=== PATIENT | female | born 1985 | race Caucasian/White ===

== ENCOUNTER 2020-08-31 08:49 | Emergency (ER) | payer MEDICAID, SELFPAY ==
[2020-08-31 08:49] VITALS: BP 148/95; PULSE 76; RESP 18; TEMP 36.2; O2SAT 100; BMI 21.9
--- NOTE | 2020-08-31 09:01 | CT_ITS ---
STUDY: CT ABDOMEN AND PELVIS WITHOUT CONTRAST REASON FOR EXAM: Female, 35 years old. Left lower abdomen and flank pain today. Prior cholecystectomy, IUD. RADIATION DOSAGE (If Supplied By Facility): CTDIvol = ( 18.23 ) mGy, DLP = ( 920.21 ) mGycm TECHNIQUE: Transaxial images were obtained from the dome of the diaphragm to the symphysis pubis without oral contrast, and without intravenous contrast. Sagittal and coronal images were reconstructed. Individualized dose optimization techniques were used for this CT. COMPARISON: 03/07/2014 FINDINGS: The visualized lung bases are unremarkable. The visualized portions of the heart are within normal limits. Normal liver. There is non-visualization of the gallbladder, which may be secondary to either contraction or a prior cholecystectomy. Normal spleen. Normal pancreas. Normal bilateral adrenal glands. Normal right kidney. 3 mm obstructing stone of the proximal left ureter with mild hydronephrosis per There is a small hiatal hernia. Normal small intestine. Normal colon. The appendix is visualized and appears normal. Normal abdominal aorta. Normal inferior vena cava. Normal retroperitoneum. Normal urinary bladder. Intrauterine device within the uterus. Normal abdominal wall. Normal osseous structures. CT/Abdomen/Pelvis without Cont IMPRESSION: 3 mm obstructing stone in the proximal left ureter with mild hydronephrosis. Electronically Signed: Familia Damon MD at 10:30 EST Tel , Service support ,
--- NOTE | 2020-08-31 09:06 | ED.VIS.GEN ---
History of Present Illness Informant: Patient Onset: Today Narrative: 35-year-old female with past medical history of cholecystectomy presents with complaints of left lower quadrant abdominal pain. She states it started around 5:30 AM this morning. Pain is sharp and stabbing in the left lower quadrant and radiates around to the left flank. It waxes and wanes in intensity. She has nausea and 3 episodes of vomiting. Denies urinary symptoms. She does have an IUD and has not had a menstrual cycle for the last 3 years, but today had a small amount of pink-tinged discharge. Denies constipation or diarrhea. Denies history of kidney stones. Denies fevers, chills, chest pain, shortness of breath, or cough. <Johana Iqbal - Last Filed: 08/31/20 10:44> Narrative: Patient presents with left lower quadrant abdominal pain she appears well. She is found to have a kidney stone which is obstructing. She will be given analgesia and antiemetics if she worsens she is to return. <Paresh Santos - Last Filed: 08/31/20 12:58> Chief Complaint: Abd Pain Past Medical History Past Medical History: - - Anxiety, depression Surgical History: cholecystectomy Smoking Status: Current every day smoker <Johana Iqbal - Last Filed: 08/31/20 10:44> <Paresh Santos - Last Filed: 08/31/20 12:58> - Allergies and Home Meds Allergies/Adverse Reactions: Allergies Penicillins Allergy (Severe, Verified 08/31/20 08:58) Hives amoxicillin [Amoxicillin] Allergy (Verified 08/31/20 08:58) Hives adhesive Adverse Reaction (Verified 08/31/20 08:58) Itching Primary Care Physician: Corby Fajardo MD [Primary Care Provider] - Review of Systems General: Denies: Chills, Fever, Sweats Eyes: Denies: Visual changes - bilaterally, Diplopia ENT: Denies: Rhinorrhea, Sore throat Cardiovascular: Denies: Chest pain, Palpitations Respiratory: Denies: Dyspnea, Cough, Dyspnea on exertion Gastrointestinal: Reports: Abdominal pain, Nausea, Vomiting. Denies: Diarrhea, Constipation, Melena, Hematochezia Genitourinary: Denies: Dysuria, Hematuria, Frequency Musculoskeletal: Reports: Back pain. Denies: Extremity Pain Skin: Denies: Rash, Wounds Neurological: Denies: Headache, Weakness, Numbness <JackJohana banks - Last Filed: 08/31/20 10:44> Physical Exam Vital Signs/Narrative: Vital Signs Temp Pulse Resp BP Pulse Ox 08/31/20 08:49 97.2 F L 76 18 148/95 H 100 Inital Vital Signs reviewed: Yes General: Well nourished, Well developed, No Acute Distress Head: Normocephalic, Atraumatic Eyes: Perrl, EOMI ENT: Moist mucous membranes, No rhinorrhea Neck: Supple, Nontender Cardiovascular: Regular rate, Regular rhythm, No murmurs Respiratory: No distress, CTA bilaterally, Chest nontender Abdomen: Soft, Nondistended, Normal bowel sounds, Tender, - - Tender to palpation in left lower quadrant, soft with no guarding or rebound. Negative for: Guarding, Rebound tenderness Back: Nontender, Normal Inspection. Negative for: CVA tenderness Extremities: No edema Skin: Normal color, No rash Neurological: Alert, Oriented x3, Cranial nerves II-XII grossly intact Psychological: Normal affect, Normal Mood <JackJohana banks - Last Filed: 08/31/20 10:44> Vital Signs/Narrative: Vital Signs Pulse Resp BP Pulse Ox 08/31/20 10:59 62 15 131/57 H 99 08/31/20 10:39 74 15 124/69 H 98 <Paresh Santos - Last Filed: 08/31/20 12:58> Diagnostic/Tx/Re-eval Clinical Impression(s) from Imaging Studies Abdomen/Pelvis CT 08/31/20 09:01 IMPRESSION: 3 mm obstructing stone in the proximal left ureter with mild hydronephrosis. Electronically Signed: Familia Damon MD at 10:30 EST Tel , Service support , Laboratory Data 08/31/20 08/31/20 08/31/20 09:09 09:09 09:10 WBC 6.9 RBC 5.12 Hgb 13.9 Hct 42.2 MCV 82.4 MCH 27.1 MCHC 32.9 RDW Std Deviation 37.1 RDW Coeff of Kenny 12.3 Plt Count 302 MPV 9.5 Immature Gran % (Auto) 0.300 Neut % (Auto) 72.9 H Lymph % (Auto) 21.3 [place] % (Auto) 3.6 Eos % (Auto) 1.5 Baso % (Auto) 0.4 Absolute Neuts (auto) 5.0 Absolute Lymphs (auto) 1.46 Nucleated RBC % 0 Sodium 139 Potassium 3.9 Chloride 110 H Carbon Dioxide 23.0 Anion Gap 6 BUN 12 Creatinine 0.91 Estim Creat Clear Calc 79.12 Est GFR (MDRD) Af Amer 91 Est GFR (MDRD) Non-Af 75 BUN/Creatinine Ratio 13.1 Glucose 120 H Calcium 8.9 Total Bilirubin 0.40 AST 14 L ALT 27 Alkaline Phosphatase 53 Total Protein 7.7 Albumin 3.6 Globulin 4.1 Albumin/Globulin Ratio 0.9 Lipase 115 Urine Color Brown Urine Clarity Turbid Urine pH 5.0 Ur Specific [place] 1.025 Urine Protein 100 H Urine Glucose (UA) Normal Urine Ketones 5 H Urine Occult Blood 250 H Urine Nitrite Negative Urine Bilirubin Negative Urine Urobilinogen Normal Ur Leukocyte Esterase 25 H Urine RBC > 100 SEEN Urine WBC 5-10 SEEN Ur Squamous Epith Cells 0-5 SEEN Urine Bacteria 4+ Urine Mucus 0 SEEN Urine Test Negative - Medical Decision Making Patient presented with left lower quadrant abdominal pain radiating around to her left flank with nausea and vomiting. She appears well nontoxic. Vital signs within normal limits. She has mild LLQ tenderness on exam. Labs are unremarkable. Urinalysis shows blood and leukocytes/bacteria consistent with UTI. CT showed 3 mm obstructing stone in the proximal left ureter with mild hydronephrosis. She is feeling improved after toradol and zofran. She was given scripts for percocet, zofran, and bactrim for complicated UTI. She was agreeable with this plan and discharged home in stable condition. 1. Left obstructive kidney stone with hydronephrosis 2. Complicated UTI <Johana Iqbal - Last Filed: 08/31/20 10:44> ED Disposition <Johana Iqbal - Last Filed: 08/31/20 10:44> <Paresh Santos - Last Filed: 08/31/20 12:58> - Plan for ED Patient: Disposition: Home or Assisted Living Diagnosis: Hydronephrosis with urinary obstruction due to renal calculus, UTI (urinary tract infection) Instructions: ED Renal Stone w [facility] Prescriptions: Smz/Tmp Ds [Bactrim Ds] 1 tab PO BID #20 tab Prescription Printed Oxycodone HCl/Acetaminophen [Percocet 5/325] 1 tab PO Q6H PRN PRN 3 Days #12 tab PRN Reason: Pain Prescription Printed Ondansetron [Zofran Odt] 4 mg PO Q8H PRN PRN #10 tab PRN Reason: Nausea Prescription Printed Referrals: Corby Fajardo MD [Primary Care Provider] -
[2020-08-31 09:26] LABS: Mucous, Urine 0 SEEN /hpf (<or=2+)
[2020-08-31] MEDS: Ketorolac 15 MG/ML Vial IV (09:27)
[2020-08-31] MEDS: Ondansetron 4 MG/2 ML Vial IV (09:27)
[2020-08-31 09:28] LABS: Color, Urine Brown (Yellow); Glucose, Dipstick Normal (Normal); Ketone-Dipstick 5 mg/dl (Negative); Leukocyte Esterase-Dipstick 25 /ul (Negative); Nitrite-Dipstick Negative (Negative); Occult Blood-Urine 250 /ul (Negative); Protein-Dipstick 100 mg/dl (Negative); Specific Gravity, Urine 1.025 (1.002-1.030); Urine Bilirubin Dipstick Negative (Negative); Urine Clarity Turbid (Clear); Urine Urobilinogen Normal (Normal)
[2020-08-31 09:30] LABS: Absolute Lymphocyte Count 1.46 X10^3/uL (0.83-4.51); Basophil# 0.03 X10^3/uL; Basophil% 0.4 % (0-1); Eosinophils% 1.5 % (0-5); Hematocrit 42.2 % (37-47); Hemoglobin 13.9 g/dL (12.0-15.0); Lymphocyte # 1.46 X10^3/ul (4.0); Lymphocyte % 21.3 % (19-41); Mean Corp Hgb Conc 32.9 g/dL (32-36); Mean Corpuscular Hgb 27.1 pg (27.0-32.0); Mean Corpuscular Volume 82.4 fL (81-99); Mean Platelet Vol. 9.5 fl (6.2-12.0); Monocyte# 0.25 X10^3/uL; Monocyte% 3.6 % (0-10); NRBC Flagged by Analyzer 0 % (0-5); Neutrophil # 5.01 X10^3/uL (2.7-7.7); Neutrophil % 72.9 % (47-70); Platelet Count 302 K/mm3 (150-450); RBC Distribution Width CV 12.3 % (11.6-14.6); RBC Distribution Width SD 37.1 fl (35.1-43.9); Red Blood Count 5.12 M/mm3 (4.2-5.4); White Blood Count 6.9 K/mm3 (4.4-11.0)
[2020-08-31 09:32] LABS: ALB/GLOB Ratio 0.9 RATIO (0.9-2.4); AST(SGOT) 14 U/L (15-37); Alanine Aminotransfer ALT/SGPT 27 U/L (13-56); Albumin, Serum 3.6 g/dL (3.2-5.0); Alkaline Phosphatase 53 U/L (45-117); Anion Gap 6 (5-15); BUN 12 mg/dL (7-18); BUN/Creat Ratio 13.1 RATIO (10-20); Calcium,Total 8.9 mg/dL (8.5-10.1); Chloride 110 mmol/L (98-107); Creatinine, Serum 0.91 mg/dL (0.55-1.02); EST Glomerular Filtration Rate 75 mL/min (>60); Est Glom Filt Rate - Afr Amer 91 mL/min (>60); Estimated Creatinine Clearance 79.12 ml/min; Globulin 4.1 g/dL (2.2-4.2); Glucose 120 mg/dL (74-106); Lipase 115 U/L (73-393); Potassium 3.9 mmol/L (3.5-5.1); Protein, Total 7.7 g/dL (6.4-8.2); Sodium Level 139 mmol/L (136-145)
[2020-08-31 09:35] LABS: Internal QC Validated? YES +Cl - CLEAR BKGD; Pregnancy, Urine Negative Negative
[2020-08-31 09:37] LABS: Squamous Epithelial Cells - UA 0-5 SEEN /hpf (5-10)
[2020-08-31 09:40] LABS: Bacteria 4+ /hpf (None Seen); Red Blood Cells-Urine > 100 SEEN /hpf (0-5); White Blood Cells 5-10 SEEN /hpf (0-5)
[2020-08-31 10:39] VITALS: BP 124/69; PULSE 74; RESP 15; O2SAT 98
[2020-08-31] MEDS: Ketorolac 15 MG/ML Vial IM (10:41)
[2020-08-31 10:59] VITALS: BP 131/57; PULSE 62; RESP 15; O2SAT 99
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
== END 2020-08-31 10:59 | disposition home or self-care (01) ==
PROVIDERS: Emergency Provider Physician Assistant; PCP Family Medicine
DX: N13.6 Pyonephrosis (principal); F17.200 Nicotine dependence, unspecified, uncomplicated; Z79.899 Other long term (current) drug therapy; Z97.5 Presence of (intrauterine) contraceptive device
CPT/HCPCS: 74176; 80053; 81001; 81025; 83690; 85025; 96372; 96374; 96375; 99283; A4216; J2405

== ENCOUNTER → 2025-06-19 | Outpatient (CLI) | payer OTHER, SELFPAY ==
[2025-06-21 09:08] LABS: HPV APTIMA, High Risk Negative (Negative)
== END | disposition home or self-care (01) ==
LOC: LABSPEC 11:48
PROVIDERS: PCP Family Medicine; Visit Provider Nurse Practitioner Women's Health
DX: Z12.4 Encounter for screening for malignant neoplasm of cervix (principal)
CPT/HCPCS: 87624; 88175; G0145

== ENCOUNTER → 2025-06-29 | Outpatient (CLI) | payer OTHER, SELFPAY ==
--- NOTE | 2025-06-29 07:30 | BI_ITS ---
EXAM: SCRN MAMM (CAD)W/RASHAD BILAT DATE: 06/29/2025 CLINICAL HISTORY: F, Age 40 y/o , SCREEN TECHNIQUE: Procedure Code: [id number] Modality: MG Procedure: SCRN MAMM (CAD)W/RASHAD BILAT COMPARISON: Prior exam(s) dated 01/04/2024, 02/02/2023 and 01/13/2023. FINDINGS: TISSUE DENSITY: There are scattered areas of fibroglandular density. Bilateral Breast Mammographic Findings: There is a 6 mm masslike density identified in the superior, middle 3rd aspect of the left breast which requires additional workup. This is best visualized on the CC view. On the rashad images that appears to be located superiorly within the breast. Further workup is indicated. Benign round microcalcifications are seen in the left breast. There is a stable 2 cm partially obscured isodense mass in the superior outer, far anterior aspect of the right breast. A radiopaque clip is seen in the mass. The biopsy was benign. A radiopaque clip is seen in the superior medial, middle 3rd aspect of the right breast. There is a 6 mm mass at this location. This area appears stable. The biopsy was benign. This area appears stable. Benign round microcalcifications are seen in the right breast. BI/SCRN MAMM (CAD)W/RASHAD BILAT IMPRESSION: The masslike density in the left breast requires additional workup. The patien t should return for an LM view of the left breast and spot compression CC and spot compression MLO views of the left breast massl tray density. An ultrasound will also most likely be needed. OVERALL FINAL ASSESSMENT BI-RADS 0: INCOMPLETE - NEED ADDITIONAL IMAGING EVALUATION. RECOMMENDATION: Additional Views obtained/call backs A letter with findings and recommendations will be mailed to the patient. Reading Location: [id number]
--- OUTSIDE RECORDS SUMMARY | 2025-06-29 07:45 | XMS RPT_ITS | CCD ---
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 FORCEPS REMOVAL) 2004 [place] teeth LAPAROSCOPY SURG CHOLECYSTECTOMY 03/06/14 PAST SURGICAL HISTORY OF 02/05/07 right breast biopsy - fibroadenoma (Dr. Rubi) FAMILY HISTORY Problem Relation Age of Onset Hypertension Mother Thyroid Mother Diabetes Father dx'd age 50; overweight; Breast Cancer Sister 41 Cancer Maternal Grandmother Ovarian Heart Maternal Grandfather of sudden ?[place], age 57 (no autopsy done) Diabetes Paternal Grandmother Cancer Paternal Grandfather Lymphoma Diabetes Paternal Grandfather No Known Problems Daughter in a house fire No Known Problems Son in a house fire SOCIAL HISTORY Social History Tobacco Use Smoking status: Never Smokeless tobacco: Never Tobacco comments: no one smokes in household Vaping Use Vaping Use: Never used Substance Use Topics Alcohol use: Yes Comment: Rarely, none while Drug use: No REVIEW OF SYSTEMS Abdomen: No abdominal pain, nausea, vomiting, diarrhea, or constipation. No bloating, early satiety, indigestion, or increased flatulence. Bladder: No dysuria, gross hematuria, urinary frequency, urinary urgency, or incontinence. Breast: No breast lumps, nipple d/c, overlying skin changes, redness or skin retraction. Allergies and current medication updated:Yes EXAM: BP 126/84 Ht 5' 4.5 (1.64m) Wt 242 lb (109.8kg) LMP 07/06/2017 BMI 40.91 kg/(m^2). GENERAL: pleasant, female in no apparent distress HEENT: Normocephalic, atraumatic, mucus membranes moist, and no lesions NECK: Supple, full range of motion, no adenopathy, and thyroid normal DERMATOLOGY: Normal, without lesions, non-icteric, and non-hirsute BREAST: soft, non-tender, symmetric, no dominant mass on left normal nipple- areolar complex, no lymphadenopathy, and no nipple discharge, on right adjacent to arola at 9 oclock is a firm, oval 1.5 cmlesion that has been present in the past, nontender CHEST: Normal inspiratory effort ABDOMEN: soft, non-tender, and no masses PELVIC: external genitalia normal, normal Bartholin's glands, urethra, Wallace's glands, no vulvar lesions, no cervical lesions, good vaginal support, physiologic discharge present, normal appearing perineal body and perianal region, IUD strings not noted BIMANUAL: uterus normal size, shape and consistency, no adnexal masses, and non-tender RECTOVAGINAL: deferred. NEURO: alert and oriented x3,exam grossly non-focal EXTREMITIES: normal ASSESSMENT/PLAN: 1) Health maintenance: Pap/HPV up to date. Mammogram ordered. HPV vaccine: discussed, not interested 2) Contraception: IUD. Contraceptive options reviewed and information provided. 3) STD screening: Declined STD check. 4) Follow up one year or sooner as needed Juhi Coleman MD documented in this encounterSam[facility]12-31-2022 Chief complaint Narrative - Reported* An interactive audio and video telecommunication system which permits real time communications between the patient (at the originating site) and provider (at the distant site) was utilized to providethis telehealth service. * Verbal consent was requested and obtained from STEFANY KELSEY on this date, 10/17/2022 11:19 AM ,for a telehealth visit. * Patient s/Guardian s identity confirmed by valid photo ID. -[facility] Work Phone: [phone]) 188-325412-25-2022 History of Present illness Narrative 37-year-old female with complaints of a cough. She states 6 days ago she started with a cough and has gotten worse over the last few days. She denies any chest pain or shortness of breath. She does have a history of asthma and has been using her inhalers. She denies any shortness of breath at present. She has not been recently hospitalized for asthma and she has never been intubated for her asthma. Her cough is nonproductive. She is vaccinated for COVID. She has no concern for COVID.[facility] Work Phone: [phone] History of Past illness Narrative* Problem Noted Date Resolved Date Prior complicated by IUGR, antepartum 10/15/2016 07/07/2017 Overview: 10/15/16: previous 40.4 wks 5lb 14oz- consider 3rd trimester growth u/s. Germaine Ramos MD Unplanned 10/05/2016 07/07/2017 Overview: 10/05/2016This is a surprise . She and her partner just got full custody of his two children. TKRN History of depression, currently preg nant 10/05/2016 07/07/2017 Obesity in 10/05/2016 07/07/2017 Overview: 10/05/2016 Patient is obese. She will plan on GCT @ [facility]. TKRN Supervision of normal 10/19/2014 05/13/2015 Overview: Girl on - [facility] Late care 10/19/2014 05/13/2015 Allergic rhinitis, cause unspecified 05/13/2015 Overview: mild, occasional Family history of diabetes mellitus 05/13/2015 Overview: father, age 50 at diagnosis documented as of this encounter (statuses as of 01/05/2023) [facility] History of Past illness Narrative* Problem Noted Date Resolved Date Prior complicated by IUGR, antepartum 10/15/2016 07/07/2017 Overview: 10/15/16: previous 40.4 wks 5lb 14oz- consider 3rd trimester growth u/s. Germaine Ramos MD Unplanned 10/05/2016 07/07/2017 Overview: 10/05/2016This is a surprise . She and her partner just got full custody of his two children. TKRN History of depression, currently preg nant 10/05/2016 07/07/2017 Obesity in 10/05/2016 07/07/2017 Overview: 10/05/2016 Patient is obese. She will plan on GCT @ [facility]. TKRN Supervision of normal 10/19/2014 05/13/2015 Overview: Girl on - [facility] Late care 10/19/2014 05/13/2015 Allergic rhinitis, cause unspecified 05/13/2015 Overview: mild, occasional Family history of diabetes mellitus 05/13/2015 Overview: father, age 50 at diagnosis documented as of this encounter (statuses as of 01/13/2023) [facility] History of Past illness Narrative* Problem Noted Date Resolved Date Prior complicated by IUGR, antepartum 10/15/2016 07/07/2017 Overview: 10/15/16: previous 40.4 wks 5lb 14oz- consider 3rd trimester growth u/s. Germaine Ramos MD Unplanned 10/05/2016 07/07/2017 Overview: 10/05/2016This is a surprise . She and her partner just got full custody of his two children. TKRN History of depression, currently preg nant 10/05/2016 07/07/2017 Obesity in 10/05/2016 07/07/2017 Overview: 10/05/2016 Patient is obese. She will plan on GCT @ [facility]. TKRN Supervision of normal 10/19/2014 05/13/2015 Overview: Girl on [facility] care 10/19/2014 05/13/2015 Allergic rhinitis, cause unspecified 05/13/2015 Overview: mild, occasional Family history of diabetes mellitus 05/13/2015 Overview: father, age 50 at diagnosis documented as of this encounter (statuses as of 01/15/2023) [facility] of Past illness Narrative* Problem Noted Date Resolved Date Prior complicated by IUGR, antepartum 10/15/2016 07/07/2017 Overview: 10/15/16: previous 40.4 wks 5lb 14oz- consider 3rd trimester growth u/s. Germaine Ramos MD Unplanned 10/05/2016 07/07/2017 Overview: 10/05/2016This is a surprise . She and her partner just got full custody of his two children. TKRN History of depression, currently preg nant 10/05/2016 07/07/2017 Obesity in 10/05/2016 07/07/2017 Overview: 10/05/2016 Patient is obese. She will plan on GCT @ [facility]. TKRN Supervision of normal 10/19/2014 05/13/2015 Overview: Girl on - [facility] Late care 10/19/2014 05/13/2015 Allergic rhinitis, cause unspecified 05/13/2015 Overview: mild, occasional Family history of diabetes mellitus 05/13/2015 Overview: father, age 50 at diagnosis documented as of this encounter (statuses as of 01/25/2023) [facility] of Past illness Narrative* Problem Noted Date Resolved Date Prior complicated by IUGR, antepartum 10/15/2016 07/07/2017 Overview: 10/15/16: previous 40.4 wks 5lb 14oz- consider 3rd trimester growth u/s. Germaine Ramos MD Unplanned 10/05/2016 07/07/2017 Overview: 10/05/2016This is a surprise . She and her partner just got full custody of his two children. TKRN History of depression, currently preg nant 10/05/2016 07/07/2017 Obesity in 10/05/2016 07/07/2017 Overview: 10/05/2016 Patient is obese. She will plan on GCT @ [facility]. TKRN Supervision of normal 10/19/2014 05/13/2015 Overview: Girl on - [facility] Late care 10/19/2014 05/13/2015 Allergic rhinitis, cause unspecified 05/13/2015 Overview: mild, occasional Family history of diabetes mellitus 05/13/2015 Overview: father, age 50 at diagnosis documented as of this encounter (statuses as of 01/30/2023) [facility] of Past illness Narrative* Problem Noted Date Resolved Date Prior complicated by IUGR, antepartum 10/15/2016 07/07/2017 Overview: 10/15/16: previous 40.4 wks 5lb 14oz- consider 3rd trimester growth u/s. Germaine Ramos MD Unplanned 10/05/2016 07/07/2017 Overview: 10/05/2016This is a surprise . She and her partner just got full custody of his two children. TKRN History of depression, currently preg nant 10/05/2016 07/07/2017 Obesity in 10/05/2016 07/07/2017 Overview: 10/05/2016 Patient is obese. She will plan on GCT @ [facility]. TKRN Supervision of normal 10/19/2014 05/13/2015 Overview: Girl on [facility] care 10/19/2014 05/13/2015 Allergic rhinitis, cause unspecified 05/13/2015 Overview: mild, occasional Family history of diabetes mellitus 05/13/2015 Overview: father, age 50 at diagnosis documented as of this encounter (statuses as of 02/16/2023) [facility] of Past illness Narrative* Problem Noted Date Resolved Date Prior complicated by IUGR, antepartum 10/15/2016 07/07/2017 Overview: 10/15/16: previous 40.4 wks 5lb 14oz- consider 3rd trimester growth u/s. Germaine Ramos MD Unplanned 10/05/2016 07/07/2017 Overview: 10/05/2016This is a surprise . She and her partner just got full custody of his two children. TKRN History of depression, currently preg nant 10/05/2016 07/07/2017 Obesity in 10/05/2016 07/07/2017 Overview: 10/05/2016 Patient is obese. She will plan on GCT @ [facility]. TKRN Supervision of normal 10/19/2014 05/13/2015 Overview: Girl on [facility] Late care 10/19/2014 05/13/2015 Allergic rhinitis, cause unspecified 05/13/2015 Overview: mild, occasional Family history of diabetes mellitus 05/13/2015 Overview: father, age 50 at diagnosis documented as of this encounter (statuses as of 02/17/2023) [facility] of Past illness Narrative* Problem Noted Date Diagnosed Date Resolved Date Prior complicated by IUGR, antepartum 10/15/2016 07/07/2017 Overview: 10/15/16: previous 40.4 wks 5lb 14oz- consider 3rd trimester growth u/s. Germaine Ramos MD Unplanned 10/05/2016 07/07/20 17 Overview: 10/05/2016This is a surprise . She and her partner just got full custody of his two children. TKRN History of depres adelina, currently 10/05/2016 07/07/2017 Obesity in 10/05/2016 017 Overview: 10/05/2016 Patient is obese. She will plan on GCT @ [facility]. TKRN Supervision of normal 10/19/2014 05/13/2015 Overview: Girl on [facility] care 10/19/2014 5 Allergic rhinitis, cause unspecified 05/13/2015 Overview: mild, occasional Family history of diabetes mellitus 05/13/2015 Overview: father, age 50 at diagnosis documented as of this encounter (statuses as of 12/17/2023) [facility]12-29[facility]2016 History of Past illness Narrative* Problem Noted Date Diagnosed Date Resolved Date Prior complicated by IUGR, antepartum 10/15/2016 07/07/2017 Overview: 10/15/16: previous 40.4 wks 5lb 14oz- consider 3rd trimester growth u/s. Germaine Ramos MD Unplanned 10/05/2016 07/07/20 17 Overview: 10/05/2016This is a surprise . She and her partner just got full custody of his two children. TKRN History of cherie sahu, currently 10/05/2016 07/07/2017 Obesity in 10/05/2016 017 Overview: 10/05/2016 Patient is obese. She will plan on GCT @ [facility]. TKRN Supervision of normal 10/19/2014 05/13/2015 Overview: Girl on [facility] care 10/19/2014 5 Allergic rhinitis, cause unspecified 05/13/2015 Overview: mild, occasional Family history of diabetes mellitus 05/13/2015 Overview: father, age 50 at diagnosis documented as of this encounter (statuses as of 01/04/2024) [facility] History of Past illness Narrative* Problem Noted Date Diagnosed Date Resolved Date Prior complicated by IUGR, antepartum 10/15/2016 07/07/2017 Overview: 10/15/16: previous 40.4 wks 5lb 14oz- consider 3rd trimester growth u/s. Germaine Ramos MD Unplanned 10/05/2016 07/07/20 17 Overview: 10/05/2016This is a surprise . She and her partner just got full custody of his two children. TKRN History of depres adelina, currently 10/05/2016 07/07/2017 Obesity in 10/05/2016 017 Overview: 10/05/2016 Patient is obese. She will plan on GCT @ [facility]. TKRN Supervision of normal 10/19/2014 05/13/2015 Overview: Girl on [facility] care 10/19/2014 5 Allergic rhinitis, cause unspecified 05/13/2015 Overview: mild, occasional Family history of diabetes mellitus 05/13/2015 Overview: father, age 50 at diagnosis documented as of this encounter (statuses as of 01/05/2024) [facility] History of Past illness Narrative* Problem Noted Date Diagnosed Date Resolved Date Prior complicated by IUGR, antepartum 10/15/2016 07/07/2017 Overview: 10/15/16: previous 40.4 wks 5lb 14oz- consider 3rd trimester growth u/s. Germaine Ramos MD Unplanned 10/05/2016 07/07/20 17 Overview: 10/05/2016This is a surprise . She and her partner just got full custody of his two children. TKRN History of depres adelina, currently 10/05/2016 07/07/2017 Obesity in 10/05/2016 017 Overview: 10/05/2016 Patient is obese. She will plan on GCT @ [facility]. TKRN Supervision of normal 10/19/2014 05/13/2015 Overview: Girl on - [facility] Late care 10/19/2014 5 Allergic rhinitis, cause unspecified 05/13/2015 Overview: mild, occasional Family history of diabetes mellitus 05/13/2015 Overview: father, age 50 at diagnosis documented as of this encounter (statuses as of 01/05/2024) [facility] note* Diagnosis Encounter for gynecological examination (general) (routine) without abnormal findings- Primary Encounter for screening mammogram for malignant neoplasm of breast Other screening mammogram Family history of malignant neoplasm of breast [facility]* Diagnosis Abnormal mammogram- Primary Abnormal mammogram, unspecified documented in this encounter [facility] note* Diagnosis Local infection of skin and subcutaneous tissue- Primary Unspecified local infection of skin and subcutaneous tissue documented in this encounter [facility] note* Diagnosis Morbid obesity with body mass index (BMI) of 40.0 or higher (HCC)- Primary Elevated BP without diagnosis of hypertension Allergy, subsequent encounter Episode of recurrent major depressive disorder, unspecified depression episode severity (HCC) documented in this encounter [facility] note* Diagnosis Morbid obesity with body mass index (BMI) of 40.0 or higher (HCC)- Primary Elevated BP without diagnosis of hypertension Allergy, subsequent encounter Episode of recurrent major depressive disorder, unspecified depression episode severity (HCC) Vitamin D deficiency documented in this encounter [facility] note* Diagnosis Hypertension, unspecified type- Primary documented in this encounter [facility] note* Diagnosis Episode of recurrent major depressive disorder, unspecified depression episode severity (HCC)- Primary Hypertension, unspecified type documented in this encounter [facility] note* Diagnosis Family history of malignant neoplasm of breast- Primary Mass of right breast, unspecified quadrant documented in this encounter [facility] note* Diagnosis Mass of breast, unspecified laterality- Primary documented in this encounter [facility] note* Diagnosis Family history of malignant neoplasm of breast Mass of right breast, unspecified quadrant documented in this encounter [facility] note* Diagnosis Mass of breast, unspecified laterality documented in this encounter [facility] note* Diagnosis Breast pain, right- Primary Mastodynia Family history of breast cancer in sister Family history of malignant neoplasm of breast Fibroadenoma of right breast Benign neoplasm of breast documented in this encounter [facility] note* Diagnosis Frequent headaches- Primary Morbid obesity with body mass index (BMI) of 40.0 or higher (HCC) Hypertension, unspecified type documented in this encounter [facility] note* Diagnosis Morbid obesity with body mass index (BMI) of 40.0 or higher (HCC)- Primary Frequent headaches documented in this encounter [facility] note* Diagnosis Morbid obesity with body mass index (BMI) of 40.0 or higher (HCC)- Primary Elevated BP without diagnosis of hypertension Allergy, subsequent encounter Episode of recurrent major depressive disorder, unspecified depression episode severity (HCC) Vitamin D deficiency Hypertension, unspecified type- Primary Episode of recurrent major depressive disorder, unspecified depression episode severity (HCC)- Primary Hypertension, unspecified type Frequent headaches- Primary Healthcare maintenance [facility]* Diagnosis Morbid obesity with body mass index (BMI) of 40.0 or higher (HCC)- Primary Elevated BP without diagnosis of hypertension Allergy, subsequent encounter Episode of recurrent major depressive disorder, unspecified depression episode severity (HCC) Vitamin D deficiency Hypertension, unspecified type- Primary Episode of recurrent major depressive disorder, unspecified depression episode severity (HCC)- Primary Hypertension, unspecified type Anxiety- Primary Anxiety state, unspecified Hypertension, unspecified type Morbid obesity with body mass index (BMI) of 40.0 or higher (HCC) Healthcare maintenance Allergy, subsequent encounter Episode of recurrent major depressive disorder, unspecified depression episode severity (HCC) Asthma, unspecified asthma severity, unspecified whether complicated, unspecified whether persistent documented in this encounter [facility] note* Diagnosis Morbid obesity with body mass index (BMI) of 40.0 or higher (HCC)- Primary Elevated BP without diagnosis of hypertension Allergy, subsequent encounter Episode of recurrent major depressive disorder, unspecified depression episode severity (HCC) Vitamin D deficiency Hypertension, unspecified type- Primary Episode of recurrent major depressive disorder, unspecified depression episode severity (HCC)- Primary Hypertension, unspecified type Frequent headaches- Primary Healthcare maintenance documented in this encounter [facility] note* Diagnosis Onset Date Resolution Status Admit Date Encounter for routine gynecological examination noneactive 2024 8:12am [facility] Work Phone: [facility] for referral (narrative)* Diagnostic Procedure Only (Routine) - Authorized Specialty Diagnoses / Procedures Referred By Keara aglaviz Referred To Contact [facility] Diagnoses Encounter for screening mammogram for malignant neoplasm of breast Family history of malignant neoplasm of breast Procedures TINA SCREENING W RASHAD SCREENING DIGITAL BREAST TOMOSYNTHESIS BI SCREENING MAMMOGRAPHY BI 2-VIEW BREAST INC CAD Juhi Coleman MD [address] [place] [address] [facility] [address] [place] [phone] Referral ID Status Reason Start Date Expiration Date Visits Requested Visits Authorized [id number] Authorized Auto-Generat ed Referral 01/05/2023 02/04/2024 1 1 * Medication Prior Authorization - Closed Specialty Diagnoses / Procedures Referred By Keara galaviz Referred To Contact Juhi Coleman MD [address] [place] [address] Referral ID Status Reason Start Date Expiration Date Visits Re quested Visits Authorized [id number] Closed 1 1 [facility] for referral (narrative)* Diagnostic Procedure Only (Routine) - Authorized Specialty Diagnoses / Procedures Referred By Keara galaviz Referred To Contact [facility] Diagnoses Family history of malignant neoplasm of breast Mass of right breast, unspecified quadrant Procedures US BREAST LTD RIGHT US BREAST UNI REAL TIME WITH IMAGE LIMITED John Chaudhari MD [address] [place] [address] [facility] [address] [place] [address] Referral ID Status Reason Start Date Expiration Date Visits Requested Visits Authorized [id number] Authorized Auto-Generat ed Referral 12/17/2023 01/15/2025 1 1 * Diagnostic Procedure Only (Routine) - Authorized Specialty Diagnoses / Procedures [facility] Referred To Contact [facility] Diagnoses Family history of malignant neoplasm of breast Mass of right breast, unspecified quadrant Procedures TINA DIAGNOSTIC BILATERAL DIAGNOSTIC MAMMOGRAPHY COMPUTER-AIDED DETCJ John Payan MD [address] [place] [address] [facility] [address] [place] [address] Referral ID Status Reason Start Date Expiration Date Visits Requested Visits Authorized [id number] Authorized Auto-Generat ed Referral 12/17/2023 01/15/2025 1 1 [facility])No reason for referral information availableK[facility] Work Phone: [facility] for visit Narrative* Diagnostic Procedure Only (Routine) - Closed Specialty Diagnoses / Procedures Referred By Keara galaviz Referred To Contact [facility] Diagnoses Family history of malignant neoplasm of breast Mass of right breast, unspecified quadrant Procedures TINA DIAGNOSTIC BILATERAL DIAGNOSTIC MAMMOGRAPHY COMPUTER-AIDED DETCJ John Payan MD [address] [place] [address] [facility] [address] [place] [address] Referral ID Status Reason Start Date Expiration Date V isits Requested Visits Authorized [id number] Closed Auto-Generate d Referral 12/17/2023 01/15/2025 1 1 [facility] Summary Purpose Family History No Family History Records Found Relationship Condition Age at Onset Recorded Date/T [place] sister Malignant neoplasm of breast Unknown grandmother Malignant neoplasm Unknown grandfather Malignant neoplasm Unknown Advance Directives No Advanced Directives Records FoundNo Advanced Directives Records FoundNo Advanced Directives Records FoundNo Advanced Directives Records FoundNo Advanced Directives Records FoundNo Advanced Directives Records FoundNo Advanced Directives Records FoundNo Advanced Directives Records FoundNo Advanced Directives Records FoundNo Advanced Directives Records Found Reason for Referral Specialty Diagnoses / Procedures Referred By Keara galaviz Referred To Contact Allergy/Immunology Diagnoses Allergy, subsequent encounter Stephy Gonzalez MD [address] [address] Luca Davis MD [address] [place] [address] Referral ID Status Reason Start Date Expiration Date Visits Requested Visits Authorized [id number] Authorized Specialty Services Required/Pat ient's Best Interest 06/17/2023 06/16/2024 1 1 Scheduling Instructions Please fax to in [place] Specialty Diagnoses / Procedures Referred By Contac t Referred To Contact General Surgery Diagnoses Mass of breast, unspecified laterality Procedures CONSULT TO GENERAL SURGERY OFFICE/OUTPATIENT [facility] AT [place] 60 MINUTES John Chaudhari MD [address] [place] [address] Referral ID Status Reason Start Date Expiration Date Visits Requested Visits Authorized [id number] Authorized PCP Requested Referral 01/04/2024 01/03/2025 1 1 Specialty Diagnoses / Procedures Referred By Contac t Referred To Contact General Surgery Diagnoses Mass of breast, unspecified laterality Procedures CONSULT TO GENERAL SURGERY Fredo Rubi MD [address] [place] [address] Anjelica/Dereck Cotto [address] [place] [address] Referral ID Status Reason Start Date Expiration Date Visits Requested Visits Authorized [id number] Ref Not Required PCP Requested Referral 03/02/2024 03/02/2025 1 1 Specialty Diagnoses / Procedures Referred By Contac t Referred To Contact [facility] IMAGING Diagnoses Breast pain, right Family history of breast cancer in sister Procedures MRI BREAST WO/W IVCON BILATERAL MRI BREAST WITHOUT&WITH CONTRAST W/[place] [address] [place] [address] [place] [address] Referral ID Status Reason Start Date Expiration Date Visits Requested Visits Authorized [id number] Pending Review Auto-Generat ed Referral 03/17/2024 04/16/2025 1 1 Chief Complaint and Reason for Visit Chief Complaint 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 Date 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, 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 Reason for Visit Admit Date Fibroadenoma of right breast June 192024 8:12am Encounter for routine gynecological exam ination June 19, 2025 8:12am Reason for Visit Admit Date Encounter for routine gynecological exam ination June 19, 2025 8:12am Additional Source Comments INFORMATION SOURCE (unrecogn ized section and content) DATE CREATED AUTHOR 05/02/2019 [facility] DATE CREATED AUTHOR AUTHOR'S ORGANIZ ATION 10/17/2022 [employer] DATE CREATED AUTHOR AUTHOR'S ORGANIZ ATION 03/29/2023 [facility] DATE CREATED AUTHOR AUTHOR'S ORGANIZ ATION 03/31/2023 [facility] DATE CREATED AUTHOR AUTHOR'S ORGANIZ ATION 03/04/2024 [facility] DATE CREATED AUTHOR AUTHOR'S ORGANIZ ATION 03/18/2024 [facility] DATE CREATED AUTHOR AUTHOR'S ORGANIZ ATION 05/13/2024 [facility] DATE CREATED AUTHOR AUTHOR'S ORGANIZ ATION 04/12/2025 [facility] DATE CREATED AUTHOR AUTHOR'S ORGANIZ ATION 04/14/2025 [facility] DATE CREATED AUTHOR AUTHOR'S ORGANIZ ATION 06/28/2025 [facility] Source Comments (unrecognize d section and content) In the event this informatio n is protected by the Federal Confidentiality of Alcohol and Drug Abuse Patient Records regulations: The Federal rules restrict any use of the information to criminally investigate or prosecute any alcohol or drug abuse patient.[facility] the event this information is protected by the Federal Confidentiality of Alcohol and Drug Abuse Patient Records regulations: The Federal rules restrict any use of the information to criminally investigate or prosecute any alcohol or drug abuse patient.[facility] the event this information is protected by the Federal Confidentiality of Alcohol and Drug Abuse Patient Records regulations: The Federal rules restrict any use of the information to criminally investigate or prosecute any alcohol or drug abuse patient.[facility] the event this information is protected by the Federal Confidentiality of Alcohol and Drug Abuse Patient Records regulations: The Federal rules restrict any use of the information to criminally investigate or prosecute any alcohol or drug abuse patient.[facility] the event this information is protected by the Federal Confidentiality of Alcohol and Drug Abuse Patient Records regulations: The Federal rules restrict any use of the information to criminally investigate or prosecute any alcohol or drug abuse patient.[facility] the event this information is protected by the Federal Confidentiality of Alcohol and Drug Abuse Patient Records regulations: The Federal rules restrict any use of the information to criminally investigate or prosecute any alcohol or drug abuse patient.[facility] the event this information is protected by the Federal Confidentiality of Alcohol and Drug Abuse Patient Records regulations: The Federal rules restrict any use of the information to criminally investigate or prosecute any alcohol or drug abuse patient.[facility] Center[facility] the event this information is protected by the Federal Confidentiality of Alcohol and Drug Abuse Patient Records regulations: The Federal rules restrict any use of the information to criminally investigate or prosecute any alcohol or drug abuse patient.[facility] the event this information is protected by the Federal Confidentiality of Alcohol and Drug Abuse Patient Records regulations: The Federal rules restrict any use of the information to criminally investigate or prosecute any alcohol or drug abuse patient.[facility] Center[facility] the event this information is protected by the Federal Confidentiality of Alcohol and Drug Abuse Patient Records regulations: The Federal rules restrict any use of the information to criminally investigate or prosecute any alcohol or drug abuse patient.[facility] the event this information is protected by the Federal Confidentiality of Alcohol and Drug Abuse Patient Records regulations: The Federal rules restrict any use of the information to criminally investigate or prosecute any alcohol or drug abuse patient.[facility] Center[facility] the event this information is protected by the Federal Confidentiality of Alcohol and Drug Abuse Patient Records regulations: The Federal rules restrict any use of the information to criminally investigate or prosecute any alcohol or drug abuse patient.[facility] Center[facility] the event this information is protected by the Federal Confidentiality of Alcohol and Drug Abuse Patient Records regulations: The Federal rules restrict any use of the information to criminally investigate or prosecute any alcohol or drug abuse patient.[facility] Reason for Visit (unrecogniz ed section and content) Reason Comments Yearly Exam Reason Comments Mammogram Result Call Back Reason Comments Results Reason Comments Consult Abnormal mammogram Reason Comments Patient Update Reason Comments Establish Care Htn concerns Reason Comments Follow-up 3 mon fu Reason Comments Orders Reason Comments Radiology US Specialty Diagnoses / Procedures Referred By Contac t Referred To Contact [facility] Diagnoses Family history of malignant neoplasm of breast Mass of right breast, unspecified quadrant Procedures US BREAST LTD RIGHT US BREAST UNI REAL TIME WITH IMAGE LIMITED John Chaudhari MD [address] [place] [address] [facility] [address] [place] [address] Referral ID Status Reason Start Date Expiration Date V isits Requested Visits Authorized [id number] Closed Auto-Generate d Referral 12/17/2023 01/15/2025 1 1 Reason Comments Consult Breast mass, R Specialty Diagnoses / Procedures Referred By Keara galaviz Referred To Contact General Surgery Diagnoses Mass of breast, unspecified laterality Procedures CONSULT TO GENERAL SURGERY OFFICE/OUTPATIENT NEW HIGH MDM 60 MINUTES John Chaudhari MD [address] [place] [address] Referral ID Status Reason Start Date Expiration Date V isits Requested Visits Authorized [id number] Closed PCP Requested Referral 01/04/2024 01/03/2025 1 1 Reason Comments New Patient Right breast lump Reason Comments Follow-up Lab check up not los ing weight Reason Comments Follow-up 3 mon fu headaches Reason Comments Annual Exam No flu shot Reason Comments Follow-up Care Teams (unrecognized sec tion and content) Perinatal Nurse Relationship Specialty Start Date End Date No, Physician [facility] PCP - General 03/24/23 Perinatal Nurse Relationship Specialty Start Date End Date Stephy Gonzalez MD [address] [address] PCP - General Family Medicine 06/17/23 Perinatal Nurse Relationship Specialty Start Date End Date Stephy Gonzalez MD [address] [address] PCP - General Family Medicine 06/17/23 Perinatal Nurse Relationship Specialty Start Date End Date Stephy Gonzalez MD [facility] [place] [id number] PCP - General Family Medicine 06/17/23 Perinatal Nurse Relationship Specialty Start Date End Date Stephy Gonzalez MD [facility] [place] [id number] PCP - General Family Medicine 06/17/23 Perinatal Nurse Relationship Specialty Start Date End Date Stephy Gonzalez MD [address] [place], [place] [phone] PCP - General Family Medicine 06/17/23 Perinatal Nurse Relationship Specialty Start Date End Date Stephy Gonzalez MD [address] [place], [place] [id number] PCP - General Family Medicine 06/17/23 Theodore Castro CNP [address] [place] [address] Nurse Practitioner 05/08/24 Perinatal Nurse Relationship Specialty Start Date End Date Stephy Gonzalez MD [address] [place], [place] [phone] PCP - General Family Medicine 06/17/23 Theodore Castro CNP [address] [place] [address] Nurse Practitioner 05/08/24 Perinatal Nurse Relationship Specialty Start Date End Date Stephy Gonzalez MD [address] [address] PCP - General Family Medicine 06/17/23 Theodore Castro CNP [address] [place] [address] Nurse Practitioner 05/08/24 Perinatal Nurse Relationship Specialty Start Date End Date Stephy Gonzalez MD [facility] [address] [address] PCP - General Family Medicine 06/17/23 Theodore Castro CNP [address] [place] [address] Nurse Practitioner 05/08/24 Team Status: Active Member Role/Relationship Status Dates Dr. Corby Fajardo MD Family Provider Active Dr. Corby Fajardo MD Primary Care Provider Active Team Status: Inactive Member Role/Relationship Status Dates Dr. Corby Fajardo MD Primary Care Provider Active Start: June 19, 2025 End: June 19, 2025 Dr. Corby Fajardo MD Referring Provider Active Start: June 19, 2025 End: June 19, 2025 Theodore Castro NP, NP-C Attending Provider Active Start: June 19, 2025 End: June 19, 2025 Team Status: Active Member Role/Relationship Status Dates STEPHY GONZALEZ MD Primary Care Provider Active Team Status: Inactive Member Role/Relationship Status Dates Dr. Corby Fajardo MD Primary Care Provider Active Start: June 19, 2025 End: June 19, 2025 Theodore Castro NP [employer]-C Attending Provider Active Start: June 19, 2025 End: June 19, 2025 Goals (unrecognized section and content) Goals may be documented in a n alternate sectionGoals may be documented in an alternate section FOR RECORDS PERTAINING TO PATIENTS WHO ARE OR HAVE BEEN ENROLLED IN A CHEMICAL DEPENDENCY/SUBSTANCEABUSE PROGRAM, SOME INFORMATION MAY BE OMITTED. This clinical summary was aggregated from multiple sources. Caution should be exercised in using it in the provision of clinical care. This summary normalizes information from multiple sources, and as a consequence, information in this document may materially change the coding, format and clinical context of patient data. In addition, data may be omitted in some cases. CLINICAL DECISIONS SHOULD BE BASED ON THE PRIMARY CLINICAL RECORDS. [facility] [email or web address] [facility]. provides no warranty or guarantee of the accuracy or completeness of information in this document.
== END | disposition home or self-care (01) ==
LOC: OPBI 07:28
PROVIDERS: PCP Family Medicine; Referring Provider Nurse Practitioner Women's Health; Visit Provider Nurse Practitioner Women's Health
DX: Z12.31 Encounter for screening mammogram for malignant neoplasm of breast (principal)
CPT/HCPCS: 77063; 77067

== ENCOUNTER → 2025-07-06 | Outpatient (CLI) | payer OTHER, SELFPAY ==
--- NOTE | 2025-07-06 09:04 | BI_ITS ---
EXAM: BREAST LIMITED UNILATERAL; DIAG MAMM W/CAD, UNILAT; LT BRST UNILAT RASHAD ADD ON N/A; 07/06/2025 CLINICAL HISTORY: F, Age 40 y/o , ABD MAMM TECHNIQUE: Procedure Code: USBRSTLIMIT; BIDMWCADU; BILTUNITOMO Modality: US; MG Procedure: BREAST LIMITED UNILATERAL; DIAG MAMM W/CAD, UNILAT; LT BRST UNILAT RASHAD ADD ON COMPARISON: Prior exam(s) dated 06/29/2025, 01/13/2023. FINDINGS: MAMMOGRAM: TISSUE DENSITY: There are scattered areas of fibroglandular density LEFT BREAST: Follow-up examination performed for the left breast findings seen on exam of 06/29/2025. On the present examination, the focal asymmetry in the upper central left breast at middle depth partially effaces. ULTRASOUND: Ultrasound performed of the upper central left breast demonstrates no sonographic correlate for the mammographic finding. Otherwise, there are no suspicious sonographic findings. BI/Lt Brst Unilat Rashad Add On IMPRESSION: The focal asymmetry in the upper central left breast at middle depth is probabl y benign. Recommend short interval six-month diagnostic mammogram of the left breast for further evaluation. OVERALL FINAL ASSESSMENT: BIRADS 3: PROBABLY BENIGN. RECOMMENDATION: 6 month follow-up. A letter with findings and recommendations will be mailed to the patient. Reading Location: [id number]
--- NOTE | 2025-07-06 09:04 | BI_ITS ---
EXAM: BREAST LIMITED UNILATERAL; DIAG MAMM W/CAD, UNILAT; LT BRST UNILAT RASHAD ADD ON N/A; 07/06/2025 CLINICAL HISTORY: F, Age 40 y/o , ABD MAMM TECHNIQUE: Procedure Code: USBRSTLIMIT; BIDMWCADU; BILTUNITOMO Modality: US; MG Procedure: BREAST LIMITED UNILATERAL; DIAG MAMM W/CAD, UNILAT; LT BRST UNILAT RASHAD ADD ON COMPARISON: Prior exam(s) dated 06/29/2025, 01/13/2023. FINDINGS: MAMMOGRAM: TISSUE DENSITY: There are scattered areas of fibroglandular density LEFT BREAST: Follow-up examination performed for the left breast findings seen on exam of 06/29/2025. On the present examination, the focal asymmetry in the upper central left breast at middle depth partially effaces. ULTRASOUND: Ultrasound performed of the upper central left breast demonstrates no sonographic correlate for the mammographic finding. Otherwise, there are no suspicious sonographic findings. BI/DIAG MAMM W/CAD, UNILAT IMPRESSION: The focal asymmetry in the upper central left breast at middle depth is probabl y benign. Recommend short interval six-month diagnostic mammogram of the left breast for further evaluation. OVERALL FINAL ASSESSMENT: BIRADS 3: PROBABLY BENIGN. RECOMMENDATION: 6 month follow-up. A letter with findings and recommendations will be mailed to the patient. Reading Location: [id number]
== END | disposition home or self-care (01) ==
PROVIDERS: PCP Family Medicine; Referring Provider Nurse Practitioner Women's Health; Visit Provider Nurse Practitioner Women's Health
DX: R92.8 Other abnormal and inconclusive findings on diagnostic imaging of breast (principal)
CPT/HCPCS: 76642; 77061; 77065; G0279